=== PATIENT | female | born 2000 | race American Indian/Alaskan Native ===

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

== ENCOUNTER 2022-01-11 14:58 | Outpatient (CLI) | payer MEDICAID, OTHER ==
[2022-01-11] MEDS ORDERED: LACTATED RINGERS 1,000 ML IV ONE (15:15)
[2022-01-11 15:37] VITALS: BP 132/77
[2022-01-11 16:31] LABS: Bacteria,Urine 4+ /HPF (Negative); Hyaline Casts,Urine 6 /LPF; Mucus,Urine FEW /HPF
[2022-01-11 16:36] LABS: Color,Urine Straw (Yellow)
[2022-01-11] MEDS ORDERED: LACTATED RINGERS 1,000 ML ONE (18:29)
--- NOTE | 2022-01-11 22:04 | Ultrasound Report ---
ULTRASOUND OBSTETRIC, limited INDICATION / CLINICAL INFORMATION: Decreasesd movement, Eval for IUGR. Clinical Gestational Age (GA) in weeks, days: 37, 4 TECHNIQUE: Transabdominal. COMPARISON: None available. FINDINGS: Single intrauterine . Biparietal Diameter = 8.6 cm = 34, 6 weeks, days Head Circumference = 30.5 cm = 33, 6 weeks, days Abdominal Circumference = 31.9 cm = 35, 6 weeks, days Femur Length = 7.2 cm = 36, 5 weeks, days Average Ultrasound Age (AUA) = 35, 2 weeks, days Heart Rate: 140 beats per minute. Estimated Weight in grams (if calculated): 2753 Estimated Weight Growth Percentile (if calculated): 16 Position: cephalic. Placenta: Placental position was not imaged. IMPRESSION: 1. Single, living intrauterine with estimated sonographic age of 35, 2 weeks, days. ULTRASOUND BIOPHYSICAL PROFILE INDICATION / CLINICAL INFORMATION: Decreasesd movement, Eval for IUGR. COMPARISON: None available. FINDINGS: BREATHING MOVEMENT = 0 GROSS BODY MOVEMENT = 2 TONE = 2 QUALITATIVE AMNIOTIC FLUID VOLUME = 2 TOTAL BIOPHYSICAL SCORE = 8/8 AMNIOTIC FLUID INDEX (cm) = 7.3 HEART RATE (beats per minute): 135 IMPRESSION: 1. biophysical profile = 10/12 Signer Name: Edgardo Strickland MD Signed: 01/11/2022 10:00 PM Workstation Name: [id number]
== END 2022-01-11 22:50 | disposition home or self-care (01) ==
LOC: TRG 14:58 → APU 15:02 → TRG 22:50
PROVIDERS: ATTEND Obstetrics & Gynecology Gynecology
DX: O36.8130 Decreased fetal movements, third trimester, not applicable or unspecified (principal); O42.913 Preterm premature rupture of membranes, unspecified as to length of time between rupture and onset of labor, third trimester; Z3A.37 37 weeks gestation of pregnancy
CPT/HCPCS: 36415; 59025; 76816; 76819; 81001; 84112; 96360; J7120

== ENCOUNTER 2022-01-20 19:27 | Inpatient (IN) | payer OTHER ==
[2022-01-20] MEDS ORDERED: ACETAMINOPHEN 325 MG TAB PO PRN (21:45)
[2022-01-20] MEDS ORDERED: LIDOCAINE (2%) 20 MG/1 ML VIAL 20 ML MDV INFILTRATI ONE (21:45)
[2022-01-20] MEDS ORDERED: OXYTOCIN 10 UNIT/1 ML INJ IM PRN (21:45)
[2022-01-20] MEDS ORDERED: LOPERAMIDE 2 MG CAP PO PRN (21:45)
[2022-01-20] MEDS ORDERED: METHYLERGONOVINE MALEATE 0.2 MG/ML VIAL IM PRN (21:45)
[2022-01-20] MEDS ORDERED: BUTORPHANOL 2 MG/1 ML INJ IV PRN ×2 (21:45)
[2022-01-20] MEDS ORDERED: miSOPROStol 200 MCG TAB PR PRN (21:45)
[2022-01-20] MEDS ORDERED: ePHEDrine SULFATE 50 MG/1 ML INJ IV PRN (21:45)
[2022-01-20] MEDS ORDERED: fentaNYL 100 MCG/2 ML INJ IV PRN (21:45)
[2022-01-20] MEDS ORDERED: CARBOPROST TROMETHAMINE 250 MCG/1 ML INJ IM PRN (21:45)
[2022-01-20] MEDS ORDERED: MINERAL OIL 30 ML ORAL LIQD PO PRN (21:45)
[2022-01-20] MEDS ORDERED: OXYTOCIN DRIP 30 UNITS/500 ML BAG IV SCH ×2 (22:00)
--- NOTE | 2022-01-20 22:32 | History and Physical Report ---
History of Present Illness Date of examination: 01/20/22 Date of admission: 01/20/22 Chief complaint: c/o uc and leakage of clear since 01/16/22 History of present illness: 21 y/o single AA female @ 38.6 wks presented to [facility] OB triage with c/o uc and leakage of clear vag fluid since 01/16/22. She admits to active FM and denies VB. Pt initiated her PNC @ [facility] [place] location @ 12 6/7 wks. She was co managed by [facility] for a diag of obesity. Several mildly elevated b/ps were noted throughout course. 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 Surgical and family hx unremarkable. Pt denies smoking, drug or alcohol use. Pt was found to be amnisure pos and was admitted to L&D for an augmentation of labor. 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, obesity, varicella NI, pericardial effusion) Past Surgical History: no surgical history Family/Genetic History: none Social history: single, full code - Obstetrical History Expected Date of Delivery: 01/28/22 Actual Gestation: 38 Week(s) 6 Day(s) : 1 Para: 0 Medications and Allergies Allergies Allergy/AdvReac Type Severity Reaction Status Date / Time No Known Allergies Allergy Verified 07/17/16 10:28 Home Medications Medication Instructions Recorded Confirmed Last Taken Type No Known Home Medications [No 07/17/16 07/17/16 Unknown History Reported Home Medications] Review of Systems All systems: negative Eyes: deferred Ears, nose, mouth and throat: deferred Breasts: normal Rectal Exam: normal exam-external/orifice - Vital Signs Vital signs: Vital Signs Pulse Pulse Ox 79 98 01/20/22 20:09 01/20/22 20:09 Temp Pulse Resp BP Pulse Ox 91 H 138/76 97 01/20/22 22:04 01/20/22 20:10 01/20/22 22:04 - Physical Exam Breasts: Positive: normal Cardiovascular: Regular rate, Normal S1, Normal S2 Abdomen: Positive: normal appearance, soft, normal bowel sounds Genitourinary (Female): Positive: normal external genitalia, normal perenium Vulva: both: normal Vagina: Positive: normal moisture Uterus: Positive: enlarged Adnexa: both: normal Anus/Rectum: Positive: normal perianal skin Extremities: Positive: normal - Obstetrical FHR: auscultation normal, category 1 Uterine Contraction Monitor Mode: External Cervical Dilatation: 1 Cervical Effacement Percentage: 50 station: -3 Uterine Contraction Pattern: Irregular Uterine Tone Measurement Phase: Resting Uterine Contraction Intensity: Mild Results Abnormal lab results 01/20/22 Range/Units 20:23 Membranes Rupture Positive A (Negative) All other labs normal. 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
[2022-01-20] MEDS ORDERED: miSOPROStol 25 MCG TAB PO PRN (22:51)
[2022-01-20] MEDS ORDERED: miSOPROStol 25 MCG TAB PO ONE (22:59)
[2022-01-20 23:43] LABS: Hematocrit 36.6 % (30.3-42.9); Hemoglobin 12.5 gm/dl (10.1-14.3); Mean Corpuscular HGB Conc 34 % (30-34); Mean Corpuscular Volume 79 fl (79-97); Platelet Count 241 K/mm3 (140-440); Red Blood Count 4.64 M/mm3 (3.65-5.03)
[2022-01-21] MEDS: LACTATED RINGERS 1,000 ML IV SCH ×6 (00:14→23:37)
[2022-01-21 02:09] LABS: Color,Urine Colorless (Yellow)
[2022-01-21 02:42] LABS: Alanine Aminotransferase 12 units/L (7-56); Uric Acid 5.1 mg/dL (3.5-7.6)
[2022-01-21] MEDS: TERBUTALINE 1 MG/1 ML INJ SUB-Q PRN ×2 (08:19→08:54)
--- NOTE | 2022-01-21 08:28 | Event Note ---
Date: 01/21/22 S: Feeling ok O: VE 2.5/60/-1, arom forebag, clear fluid and internal monitors placed. Tachysystole noted, had last dose of 50 mcg of cytotec at 0430. Terbutaline 0.25mg given with good response. Cat 2 tracing, minimal variabilty presently. Upon strip review periods of moderate variability noted. A: 39 weeks with SROM P: Expect
[2022-01-21] MEDS ORDERED: TERBUTALINE 1 MG/1 ML INJ SUB-Q ONE (08:45)
[2022-01-21] MEDS ORDERED: ONDANSETRON 4 MG/2 ML INJ IV PRN (09:00)
[2022-01-21] MEDS ORDERED: ePHEDrine SULFATE 50 MG/1 ML INJ IV PRN (10:05)
[2022-01-21] MEDS ORDERED: NALOXONE 0.4 MG/1 ML INJ IV PRN (10:05)
--- NOTE | 2022-01-21 10:08 | Anesthesia Day of Surgery ---
Anesthesia Day of Surgery - Day of Surgery Patient Examined: Yes Patient H&P Reviewed: Yes Patient is NPO: Yes Beta Blockers: No Cardiac Clearance: No Pulmonary Clearance: No Anthony's Test: N/A
--- NOTE | 2022-01-21 10:08 | Anesthesia Consultation ---
Anesthesia Consult and Med Hx Date of service: 01/21/22 - Airway Anesthetic Teeth Evaluation: Good ROM Head & Neck: Adequate Mental/Hyoid Distance: Adequate Mallampati Class: Class II Intubation Access Assessment: Probably Good - Pulmonary Exam CTA: Yes - Cardiac Exam Cardiac Exam: RRR - Pre-Operative Health Status ASA Pre-Surgery Classification: ASA2 Proposed Anesthetic Plan: Epidural - Pulmonary Hx Smoking: No Hx Asthma: No Hx Respiratory Symptoms: No SOB: No COPD: No Home Oxygen Therapy: No Hx Pneumonia: No Hx Sleep Apnea: No - Cardiovascular System Hx Hypertension: No Hx Coronary Artery Disease: No Hx Heart Attack/AMI: No Hx Angina: No Hx Percutaneous Transluminal Coronary Angioplasty (PTCA): No Hx Cardia Arrhythmia: No Hx Pacemaker: No Hx Internal Defibrillator: No Hx Valvular Heart Disease: No Hx Heart Murmur: No Hx Peripheral Vascular Disease: No - Central Nervous System Hx Neuromuscular Disorder: No Hx Seizures: No CVA: No Hx Back Pain: No Hx Psychiatric Problems: No - Gastrointestinal Hx Ulcer: No Hx Gastroesophageal Reflux Disease: No - Endocrine Hx Renal Disease: No Hx End Stage Renal Disease: No Hx Cirrhosis: No Hx Liver Disease: No Hx Insulin Dependent Diabetes: No Hx Non-Insulin Dependent Diabetes: No Hx Thyroid Disease: No Hx Hypothyroidism: No Hx Hyperthyroidism: No - Hematic Hx Anemia: No Hx Sickle Cell Disease: No - Other Systems Hx Alcohol Use: No Hx Substance Use: No Hx Cancer: No Hx Obesity: Yes
--- NOTE | 2022-01-21 10:09 | Progress Note ---
Labor Epidural - Labor Epidural Start Time: 09:36 Stop Time: :37 Performed by:: NILTON BISWAS Procedure: Epidural Requested for Labor Pain. H&P and PT Chart reviewed and consent obtained. Time out performed and the procedure was explained, all questions answered. Patient was placed in a sitting position with monitors applied. The PTs back was prepped and draped in usual sterile fashion. The Skin was localized with 3 mL of 1% lidocaine at L3-L4. A 17-gauge Touhy epidural needle was advanced to DENNIS with saline at 7 cm and no blood/CSF was noted via epidural needle. Epidural catheter was advanced to 12 cm. There was negative aspiration for blood and CSF in the catheter and negative response to a test dose of 3 ml 1.5% lidocaine w/ Epi and a sterile dressing was applied Patient tolerated the procedure well and there were no immediate complications noted.
[2022-01-21] MEDS: fentaNYL-BUPIV 2 MCG/ML-0.125% 200 MCG/100 ML BAG EPIDURAL SCH ×2 (10:41→23:37)
--- NOTE | 2022-01-21 14:34 | Event Note ---
Date: 01/21/22 S: Feeling more pressure O: contractions every 2-3 min, VE 5/90/-1, turned to left side, variability min to moderate, no decelerations noted A: Active labor P: Expect Strip reviewed with Dr. Fuentes
[2022-01-21] MEDS ORDERED: LIDOCAINE (2%) 20 MG/1 ML VIAL 20 ML MDV INFILTRATI ONE (19:23)
--- NOTE | 2022-01-21 20:17 | Procedure Note ---
OB Delivery Note - Delivery Date of Delivery: 01/21/22 Surgeon: ANNETTE HUANG Estimated blood loss: 300cc - Vaginal Delivery presentation: vertex Delivery position: OA Intrapartum events: decreased FHT variability Delivery induction: misoprostol Delivery augmentation: rupture of membranes Delivery monitor: external FHT, external uterine, internal FHT, internal uterine Route of delivery: Delivery placenta: spontaneous (minimal to moderate) Delivery cord: 3 umbilical vessels Episiotomy: none Delivery laceration: 1st degree Delivery repair: vicryl Anesthesia: local, epidural Delivery comments: of a viable male 8# 3 oz on Jan 21, 2022 @ 1943 over intact perineum. Terminal meconium noted. Cord clamped and cut and baby taken to the warmer for stimulation. 7/9. 1 degree vaginal floor laceration repaired with 2-0 vicryl. QBL 200cc. Mother and baby doing well. - Infant A at 1 minute: 8 at 5 minutes: 9 (8# 3oz) Infant Gender: Male
[2022-01-21] MEDS ORDERED: ACETAMINOPHEN 325 MG TAB PO PRN (20:23)
[2022-01-21] MEDS ORDERED: LANOLIN/ZINC/DIMETHICONE (LANSINOH) 7 GM TP PRN (20:23)
[2022-01-21] MEDS ORDERED: diphenhydrAMINE 25 MG CAP PO PRN (20:23)
[2022-01-21] MEDS ORDERED: WITCH HAZEL/ GLYCERIN PAD TP PRN (20:23)
[2022-01-21] MEDS ORDERED: oxyCODONE /ACETAMINOPHEN 5-325MG TAB PO PRN (20:23)
[2022-01-21] MEDS: IBUPROFEN 800 MG TAB PO SCH (20:50)
[2022-01-21] MEDS ORDERED: miSOPROStol 200 MCG TAB ONE (23:33)
[2022-01-21] MEDS ORDERED: CARBOPROST TROMETHAMINE 250 MCG/1 ML INJ IM ONE (23:33)
[2022-01-21] MEDS ORDERED: METHYLERGONOVINE MALEATE 0.2 MG/ML VIAL IM ONE (23:33)
[2022-01-21] MEDS ORDERED: SODIUM CHLORIDE 0.9% 500 ML 500 ML IV ONE (23:33)
[2022-01-21 23:41] LABS: Basophils # (Auto) 0.1 K/mm3 (0.0-0.1); Basophils % (Auto) 0.6 % (0.0-1.8); Hematocrit 30.2 % (30.3-42.9); Hemoglobin 10.3 gm/dl (10.1-14.3); Lymphocytes % (Auto) 5.9 % (13.4-35.0); Mean Corpuscular HGB Conc 34 % (30-34); Mean Corpuscular Volume 78 fl (79-97); Monocytes # (Auto) 1.9 K/mm3 (0.0-0.8); Monocytes % (Auto) 10.8 % (0.0-7.3); Platelet Count 204 K/mm3 (140-440); Red Blood Count 3.85 M/mm3 (3.65-5.03); Red Cell Distribution Width 14.9 % (13.2-15.2)
[2022-01-22] MEDS ORDERED: SODIUM CHLORIDE 0.9% 1000 ML 1,000 ML ONE ×2 (00:09→01:11)
[2022-01-22] MEDS ORDERED: fentaNYL 100 MCG/2 ML INJ ONE ×3 (00:11→01:48)
[2022-01-22] MEDS ORDERED: MIDAZOLAM 2 MG/2 ML INJ ONE (00:11)
[2022-01-22] MEDS ORDERED: KETAMINE/STERILE WATER 50 MG/ML SYRINGE ONE (00:12)
[2022-01-22] MEDS ORDERED: SUCCINYLCHOLINE CHLORIDE 200 MG/10 ML INJ MDV ONE (00:12)
[2022-01-22] MEDS ORDERED: propofoL 200 MG/20 ML VIAL IV ONE ×2 (00:12→01:13)
[2022-01-22] MEDS ORDERED: PHENYLEPHRINE/NS 1,000 MCG/10 ML SYRINGE (OR USE) IV ONE (00:14)
[2022-01-22] MEDS ORDERED: ePHEDrine SULFATE 50 MG/1 ML INJ ONE (00:14)
[2022-01-22] MEDS ORDERED: TRANEXAMIC ACID 1,000 MG in SODIUM CHLORIDE 0.9% 100 ML IV ONE (00:15)
[2022-01-22] MEDS ORDERED: SODIUM CHLORIDE 0.9% 500 ML 500 ML IV ONE (00:37)
[2022-01-22] MEDS ORDERED: ONDANSETRON 4 MG/2 ML INJ ONE (01:10)
[2022-01-22] MEDS ORDERED: LACTATED RINGERS 1,000 ML ONE (01:29)
[2022-01-22] MEDS ORDERED: THIAMINE 100 MG, FOLIC ACID 1 MG, MULTIPLE VITAMIN INJ, ADULT 10 ML in SODIUM CHLORIDE ... IV ONE (01:56)
[2022-01-22] MEDS ORDERED: HYDROmorphone 1 MG/1 ML INJ IV PRN ×2 (02:37)
[2022-01-22] MEDS ORDERED: ONDANSETRON 4 MG/2 ML INJ IV PRN (02:37)
[2022-01-22] MEDS ORDERED: PROMETHAZINE 25 MG RECT SUPP PR PRN (02:37)
[2022-01-22] MEDS ORDERED: NALOXONE 0.4 MG/1 ML INJ IV PRN (02:37)
[2022-01-22] MEDS ORDERED: PROMETHAZINE 25 MG TAB PO PRN (02:37)
[2022-01-22] MEDS ORDERED: MORPHINE 4 MG/1 ML INJ IV PRN (02:37)
[2022-01-22] MEDS ORDERED: diphenhydrAMINE 50 MG/ML VIAL IV PRN (02:37)
--- NOTE | 2022-01-22 02:42 | Operative Report ---
Operative Report Operative Report: Date of surgery: January 22, 2022 Preoperative diagnosis: hemorrhage, delayed. Postoperative diagnosis: hemorrhage, second degree vulvar/perineal laceration. Procedure: 1. Examination under anesthesia 2. Posterior colporrhaphy. Surgeon: Al Fuentes MD Licensed Direct Entry Midwife: Pablo Olivarez CRNA Anesthesia: General anesthesia Estimated blood loss: 300 cc Complications: None Findings: The patient was taken to the operating room. She was put in the lithotomy position. General anesthesia was administered. She had an indwelling Lovelace's catheter. An existing Bakri balloon was removed. A second degree laceration of the lower two thirds of the posterior vaginal mucosa combined with laceration of the anal sphincters were identified. An existing repair line involving the fourchette and the perineal skin was evident. The cervix was unreachable and not visualized. There was no active bleeding superior to the apex of the described laceration. Procedure in details: The vaginal mucosa was first of all closed with #1 Vicryl. The perirectal fascia was buttressed with interrupted stitches of #1 Vicryl. The anal sphincters were reconstituted with #1 Vicryl. The subcutaneous layer of the perineum was buttressed and the skin was closed subcuticularly with #1 Vicryl. There was no active bleeding following this repair. A rectal exam was done; no breach of the lower rectum found.mThe Bakri balloon was replaced to tamponade the lower vagina and expected to be removed in about 6 hours. The uterus, vagina and perineum were hemostatic at the end of the procedure. The estimated blood loss during the time in the operating room would be a generous 300 cc. All instruments and sponges were accounted for. There were no complications as a result of this trip to the operating room. Radiologist Dr. Wong arrived while we were in the operating room and was provided with the fi ndings of examination under anesthesia. His dedication to our request to come into the hospital this late was appreciated. The patient tolerated the procedure well and was transferred safely back to her room.
[2022-01-22 03:17] LABS: Hematocrit 38.6 % (30.3-42.9); Hemoglobin 12.6 gm/dl (10.1-14.3); Mean Corpuscular HGB Conc 33 % (30-34); Mean Corpuscular Volume 83 fl (79-97); Platelet Count 166 K/mm3 (140-440); Red Blood Count 4.63 M/mm3 (3.65-5.03); Red Cell Distribution Width 16.4 % (13.2-15.2)
[2022-01-22 04:07] LABS: Basophils % (Manual) 0 % (0.0-1.8); Eosinophils % (Manual) 0 % (0.0-4.3); Platelet Estimate Consistent w Auto; Total Cells Counted 100
--- NOTE | 2022-01-22 08:03 | Progress Note ---
Assessment and Plan A: PPD # 1- stable P: to remove Bakri balloon this morning Subjective - Subjective Date of service: 01/22/22 Principal diagnosis: PPD # 1 with repair of vaginal laceration in the OR Patient reports: appetite normal : doing well Objective - Vital Signs Latest vital signs: Vital Signs Temp Pulse Resp BP BP Pulse Ox 01/22/22 07:50 115 H 128/68 01/22/22 07:21 110 H 98 01/22/22 07:20 112 H 142/81 01/22/22 07:16 112 H 98 01/22/22 07:11 107 H 98 01/22/22 07:06 109 H 97 01/22/22 07:01 109 H 98 01/22/22 06:56 108 H 98 01/22/22 06:51 107 H 98 01/22/22 06:50 100 H 130/71 01/22/22 06:21 106 H 135/61 01/22/22 05:51 101 H 129/61 01/22/22 05:20 101 H 130/61 01/22/22 04:50 100 H 135/85 01/22/22 03:45 80 17 137/82 99 01/22/22 03:30 89 16 147/89 100 01/22/22 03:16 89 17 147/86 100 01/22/22 03:01 72 18 133/84 100 01/22/22 02:45 78 17 125/69 100 01/22/22 02:28 97.1 F L 108 H 17 134/76 100 01/22/22 00:48 76 143/83 01/22/22 00:44 83 100 01/22/22 00:43 77 146/81 01/22/22 00:42 80 138/79 01/22/22 00:38 82 134/83 89 01/22/22 00:33 96 H 129/75 01/22/22 00:30 92 H 132/78 01/22/22 00:28 90 131/75 01/22/22 00:27 98.4 F 16 01/22/22 00:24 98.3 F 16 01/22/22 00:23 93 H 135/78 01/22/22 00:18 100 H 139/74 01/22/22 00:13 112 H 148/79 01/22/22 00:08 127 H 156/81 01/22/22 00:03 113 H 147/89 01/21/22 23:58 90 147/79 01/21/22 23:54 93 H 144/69 01/21/22 23:48 101 H 150/72 01/21/22 23:38 81 140/67 01/21/22 23:35 86 137/70 01/21/22 23:30 78 161/66 01/21/22 21:52 91 H 17 134/66 134/66 01/21/22 21:23 96 H 18 140/67 140/67 01/21/22 21:08 79 18 122/69 122/69 01/21/22 20:53 83 18 128/75 128/75 01/21/22 20:38 79 17 136/76 136/76 01/21/22 20:23 93 H 17 132/73 132/73 01/21/22 20:08 103 H 18 136/85 136/85 01/21/22 19:53 105 H 142/91 01/21/22 19:52 98.2 F 105 H 17 142/91 01/21/22 18:49 95 H 143/75 01/21/22 18:44 83 148/78 01/21/22 18:43 96 H 91 01/21/22 18:39 90 142/96 01/21/22 18:37 89 98 01/21/22 18:33 84 149/68 01/21/22 18:32 94 H 100 01/21/22 18:28 110 H 133/90 01/21/22 18:27 87 99 01/21/22 18:23 94 H 131/79 01/21/22 18:22 87 100 01/21/22 18:17 104 H 100 01/21/22 18:14 80 129/63 01/21/22 18:12 101 H 100 01/21/22 18:07 80 124/71 100 01/21/22 18:03 86 122/72 01/21/22 18:02 89 99 01/21/22 17:59 88 122/76 01/21/22 17:57 85 99 01/21/22 17:53 91 H 162/90 01/21/22 17:52 89 100 01/21/22 17:48 88 122/63 01/21/22 17:47 86 100 01/21/22 17:43 82 123/60 01/21/22 17:42 85 100 01/21/22 17:39 84 127/60 01/21/22 17:37 99 H 100 01/21/22 17:33 83 126/59 01/21/22 17:32 86 100 01/21/22 17:27 84 121/58 100 01/21/22 17:24 82 110/60 01/21/22 17:22 78 100 01/21/22 17:18 68 110/55 01/21/22 17:17 73 100 01/21/22 17:12 86 100 01/21/22 17:08 78 136/69 01/21/22 17:07 83 100 01/21/22 17:03 82 134/70 01/21/22 17:02 82 100 01/21/22 16:58 82 125/76 01/21/22 16:57 93 H 98 01/21/22 16:52 80 126/76 100 01/21/22 16:48 93 H 126/76 01/21/22 16:47 91 H 98 01/21/22 16:42 88 128/66 100 01/21/22 16:38 86 139/83 01/21/22 16:37 91 H 100 01/21/22 16:32 88 129/78 100 01/21/22 16:27 92 H 133/79 99 01/21/22 16:22 98 H 131/77 100 01/21/22 16:18 86 131/82 01/21/22 16:17 86 100 01/21/22 16:13 94 H 128/79 01/21/22 16:12 92 H 100 01/21/22 16:08 87 128/72 01/21/22 16:07 99 H 99 01/21/22 16:03 93 H 139/75 01/21/22 16:02 94 H 100 01/21/22 15:57 83 129/78 100 01/21/22 15:52 81 126/67 100 01/21/22 15:47 86 136/74 100 01/21/22 15:43 75 137/74 01/21/22 15:42 81 100 01/21/22 15:38 80 126/66 01/21/22 15:37 89 99 01/21/22 15:34 97 H 87 01/21/22 15:32 83 125/72 99 01/21/22 15:30 99.0 F 18 01/21/22 15:28 83 121/73 01/21/22 15:27 96 H 99 01/21/22 15:23 88 126/76 01/21/22 15:22 89 99 01/21/22 15:18 93 H 128/72 01/21/22 15:17 97 H 100 01/21/22 15:14 93 H 120/69 01/21/22 15:12 105 H 98 01/21/22 15:08 86 116/70 01/21/22 15:07 94 H 99 01/21/22 15:03 85 126/86 01/21/22 15:02 76 100 01/21/22 14:58 85 120/70 01/21/22 14:57 80 98 01/21/22 14:54 81 126/67 01/21/22 14:52 90 98 01/21/22 14:48 88 136/60 01/21/22 14:47 87 98 01/21/22 14:43 100 H 111/64 01/21/22 14:42 98 H 98 01/21/22 14:37 76 99 01/21/22 14:34 73 103/57 01/21/22 14:32 75 97 01/21/22 14:28 80 103/55 01/21/22 14:27 74 99 01/21/22 14:23 86 130/77 01/21/22 14:22 90 97 01/21/22 14:17 86 126/74 98 01/21/22 14:13 90 129/80 01/21/22 14:12 90 99 01/21/22 14:07 84 135/77 98 01/21/22 14:03 81 137/81 01/21/22 14:02 94 H 99 01/21/22 13:58 93 H 131/78 01/21/22 13:57 88 98 01/21/22 13:53 85 133/74 01/21/22 13:52 94 H 99 01/21/22 13:49 88 102/56 01/21/22 13:47 103 H 97 01/21/22 13:43 93 H 130/54 01/21/22 13:42 86 98 01/21/22 13:37 82 103/55 97 01/21/22 13:33 86 118/75 01/21/22 13:32 88 98 01/21/22 13:30 98.6 F 101 H 18 87 01/21/22 13:29 93 H 124/79 01/21/22 13:27 87 99 01/21/22 13:23 88 107/64 01/21/22 13:22 95 H 98 01/21/22 13:19 97 H 142/71 01/21/22 13:17 95 H 97 01/21/22 13:12 98 H 120/60 98 01/21/22 13:08 88 117/59 01/21/22 13:07 91 H 97 01/21/22 13:03 90 107/77 01/21/22 13:02 104 H 98 01/21/22 12:59 94 H 111/53 01/21/22 12:57 100 H 97 01/21/22 12:54 93 H 125/65 01/21/22 12:52 90 97 01/21/22 12:47 89 107/60 99 01/21/22 12:42 100 H 101/52 100 01/21/22 12:38 93 H 117/59 01/21/22 12:37 83 98 01/21/22 12:33 85 105/54 01/21/22 12:32 85 98 01/21/22 12:27 87 99 01/21/22 12:22 83 117/56 99 01/21/22 12:19 85 122/59 01/21/22 12:17 95 H 100 01/21/22 12:12 99 H 109/55 100 01/21/22 12:08 96 H 118/56 01/21/22 12:07 101 H 99 01/21/22 12:03 94 H 124/63 01/21/22 12:02 101 H 99 01/21/22 11:57 87 116/64 97 01/21/22 11:53 85 120/58 01/21/22 11:52 86 100 01/21/22 11:48 94 H 107/59 01/21/22 11:47 83 99 01/21/22 11:42 92 H 112/57 99 01/21/22 11:39 95 H 113/58 01/21/22 11:37 96 H 100 01/21/22 11:33 112 H 128/61 01/21/22 11:32 110 H 99 01/21/22 11:30 99.4 F 18 01/21/22 11:28 95 H 105/61 01/21/22 11:27 110 H 100 01/21/22 11:23 83 113/53 01/21/22 11:22 88 100 01/21/22 11:19 84 111/53 01/21/22 11:17 86 100 01/21/22 11:12 87 109/54 99 01/21/22 11:07 84 103/55 100 01/21/22 11:04 83 107/51 01/21/22 11:02 85 100 01/21/22 10:57 90 107/51 100 01/21/22 10:54 83 111/56 01/21/22 10:52 86 100 01/21/22 10:47 77 110/54 100 01/21/22 10:44 74 104/50 01/21/22 10:42 73 100 01/21/22 10:37 81 100 01/21/22 10:32 85 109/55 100 01/21/22 10:29 87 103/51 01/21/22 10:27 80 100 01/21/22 10:26 75 94/50 01/21/22 10:25 71 100/50 01/21/22 10:22 75 94/51 100 01/21/22 10:19 75 91/51 01/21/22 10:18 77 94/50 01/21/22 10:17 76 100 01/21/22 10:16 73 95/54 01/21/22 10:14 77 99/52 01/21/22 10:12 74 95/54 100 01/21/22 10:11 74 91 01/21/22 10:10 85 102/55 01/21/22 10:08 96 H 106/52 01/21/22 10:07 94 H 106/58 99 01/21/22 10:06 94 H 98/49 01/21/22 10:04 96 H 110/56 01/21/22 10:02 87 107/58 99 01/21/22 10:00 87 115/57 01/21/22 09:57 89 134/63 100 01/21/22 09:54 90 118/64 01/21/22 09:52 90 99 01/21/22 09:51 89 126/68 01/21/22 09:49 88 119/70 01/21/22 09:47 83 98 01/21/22 09:42 86 99 01/21/22 09:41 85 121/74 01/21/22 09:37 108 H 99 01/21/22 09:20 98.5 F 20 01/21/22 09:11 90 128/64 01/21/22 08:41 88 122/64 01/21/22 08:11 81 141/77 Intake and Output 01/21/22 01/22/22 01/22/22 22:59 06:59 14:59 Intake Total 1000 500 Balance 1000 500 Intake: IV 1000 Lactated Ringers 1,000 ml 1000 @ 125 mls/hr IV DIRECT JARAD Rx#:[id number] Blood Product 500 Leukoreduced Red Blood 250 Cells Unit [id number] Leukoreduced Red Blood 250 Cells Unit [id number] Leukoreduced Red Blood 0 Cells Unit [id number] Other: Estimated Blood Loss 200 - Exam Breasts: Present: deferred Cardiovascular: Present: Regular rate, Normal S1 Lungs: Present: Clear to auscultation Abdomen: Present: soft Vulva: both: normal Uterus: Present: fundal height below umbilicus Extremities: Present: normal Deep Tendon Reflex Grade: Normal +2 - Labs Labs: Abnormal lab results 01/20/22 01/21/22 01/22/22 Range/Units 22:26 23:33 02:50 WBC 17.3 H 17.1 H (4.5-11.0) K/mm3 Hct 30.2 L D (30.3-42.9) % MCV 78 L (79-97) fl MCH 27 L 27 L (28-32) pg RDW 16.4 H (13.2-15.2) % Lymph % (Auto) 5.9 L (13.4-35.0) % [place] % (Auto) 10.8 H (0.0-7.3) % Lymph # (Auto) 1.0 L (1.2-5.4) K/mm3 [place] # (Auto) 1.9 H (0.0-0.8) K/mm3 Seg Neutrophils % 82.7 H (40.0-70.0) % Seg Neuts % (Manual) 90.0 H (40.0-70.0) % Lymphocytes % (Manual) 7.0 L (13.4-35.0) % Seg Neutrophils # 14.3 H (1.8-7.7) K/mm3 Seg Neutrophils # Man 15.4 H (1.8-7.7) K/mm3 Crossmatch See Detail
[2022-01-22] MEDS: IBUPROFEN 800 MG TAB PO SCH ×2 (10:16→17:45)
[2022-01-22 10:53] LABS: Hematocrit 29.5 % (30.3-42.9); Hemoglobin 9.9 gm/dl (10.1-14.3)
[2022-01-23] MEDS: IBUPROFEN 800 MG TAB PO SCH ×2 (00:55→13:12)
--- NOTE | 2022-01-23 07:18 | Progress Note ---
Assessment and Plan A: PPD # 1 - stable P: Discharge home today Discharge instructions given Subjective - Subjective Date of service: 01/23/22 Principal diagnosis: PPD # 2 with repair of vaginal laceration in the OR Patient reports: appetite normal : doing well Objective - Vital Signs Latest vital signs: Vital Signs Temp Pulse Resp BP Pulse Ox Pulse Ox 01/23/22 06:27 88 01/23/22 01:15 116 H 01/23/22 01:14 98.8 F 123 H 18 130/81 99 01/23/22 00:55 20 01/22/22 19:50 98 01/22/22 17:26 98.6 F 122 H 18 133/82 100 01/22/22 14:15 98 01/22/22 14:08 118 H 98 01/22/22 14:03 122 H 98 01/22/22 14:00 127 H 122/76 01/22/22 13:44 99.5 F 01/22/22 10:21 116 H 133/77 01/22/22 08:51 120 H 138/77 01/22/22 08:20 120 H 102/74 01/22/22 07:50 115 H 128/68 01/22/22 07:21 110 H 98 01/22/22 07:20 112 H 142/81 Intake and Output 01/22/22 01/23/22 01/23/22 22:59 06:59 14:59 Intake Total 840 840 Output Total 500 Balance 340 840 Intake: Oral 480 Intake, Free Water 360 840 Output: Urine 500 Void 500 Other: Total, Intake Amount 480 Total, Output Amount 500 # Voids Void 2 - Exam Breasts: Present: deferred, mass Lungs: Present: Clear to auscultation Abdomen: Present: soft Vulva: both: normal Uterus: Present: fundal height below umbilicus Deep Tendon Reflex Grade: Normal +2 Incision: Present: intact - Labs Labs: Abnormal lab results 01/22/22 Range/Units Unknown Hgb 9.9 L (10.1-14.3) gm/dl Hct 29.5 L D (30.3-42.9) %
--- NOTE | 2022-01-23 07:21 | Discharge Summary ---
Providers - Providers Date of Admission: 01/20/22 21:45 Date of discharge: 01/23/22 Attending physician: BENOIT ULLOA MD Primary care physician: BENOIT ULLOA MD Hospitalization Reason for admission: active labor Delivery: Episiotomy: none Laceration: vaginal side wall, other (repaired in the OR- PPH) Incision: intact Other procedures: other (Repair of vaginal laceration in the OR) Discharge diagnosis: IUP at term delivered baby: male Hospital course: HAD PPH and repair of vagina laceration in the OR, Received 4 units of PRBC's Condition at discharge: Good Disposition: 01 HOME / SELF CARE / HOMELESS Plan - Provider Discharge Summary Activity: routine, no sex for 6 weeks, no strenuous exercise Diet: routine Instructions: routine Additional instructions: [] Smoking cessation referral if applicable(refer to patient education folder for contact #) [] Refer to [facility]'s [facility] Booklet Call your doctor immediately for: * Fever > 100.5 * Heavy vaginal bleeding ( >1 pad per hour) * Severe persistent headache * Shortness of breath * Reddened, hot, painful area to leg or breast * Drainage or odor from incision. * Keep incision clean and dry at all times and follow doctor's instructions regarding bathing/showering - Follow up plan Follow up: BENOIT ULLOA MD [Primary Care Provider] - 6 Weeks
[2022-01-23 17:04] VITALS: BP 136/88
== END 2022-01-23 18:20 | disposition home or self-care (01) | DRG 768 ==
LOC: TRG 19:27 → APU 19:30 → LD 21:45 → TRG 21:45 → UNDOADMIN 21:45 → APU 21:45 → OB 01-22 14:39
PROVIDERS: ADMIT Obstetrics & Gynecology Gynecology; ATTEND Obstetrics & Gynecology Gynecology
PROC: 10E0XZZ Delivery of Products of Conception, External Approach (ICD-10-PCS; principal; 2022-01-21)
PROC: 10907ZC Drainage of Amniotic Fluid, Therapeutic from Products of Conception, Via Natural or Artificial Opening (ICD-10-PCS; 2022-01-21)
PROC: 3E033VJ Introduction of Other Hormone into Peripheral Vein, Percutaneous Approach (ICD-10-PCS; 2022-01-21)
PROC: 3E0S3BZ Introduction of Anesthetic Agent into Epidural Space, Percutaneous Approach (ICD-10-PCS; 2022-01-21)
PROC: 00HU33Z Insertion of Infusion Device into Spinal Canal, Percutaneous Approach (ICD-10-PCS; 2022-01-21)
PROC: 0W3R7ZZ Control Bleeding in Genitourinary Tract, Via Natural or Artificial Opening (ICD-10-PCS; 2022-01-22)
PROC: 0JQC0ZZ Repair Pelvic Region Subcutaneous Tissue and Fascia, Open Approach (ICD-10-PCS; 2022-01-22)
PROC: 30233N1 Transfusion of Nonautologous Red Blood Cells into Peripheral Vein, Percutaneous Approach (ICD-10-PCS; 2022-01-22)
DX: O76 Abnormality in fetal heart rate and rhythm complicating labor and delivery (principal); O72.2 Delayed and secondary postpartum hemorrhage; Z37.0 Single live birth; Z3A.38 38 weeks gestation of pregnancy; Z20.822 Contact with and (suspected) exposure to COVID-19; O99.214 Obesity complicating childbirth; O77.0 Labor and delivery complicated by meconium in amniotic fluid; O70.1 Second degree perineal laceration during delivery
CPT/HCPCS: 36415; 36430; 81001; 82565; 83615; 84112; 84450; 84460; 84550; 85007; 85014; 85018; 85025; 85027; 86592; 86850; 86900; 86901; 86920; G0378; J3490; J0330; J2210; J2250; J2370; J2405; J2590; J2704; J3010; J3105; J3411; J7030; J7120; P9016; U0003